=== PATIENT | female | born 1985 | race Two or more races ===

== ENCOUNTER 2017-02-06 12:52 | Emergency (ER) | payer MEDICAID ==
[~2017-02-06] VITALS: Ht 154.9 cm; Wt 62.1 kg
[~2017-02-06 12:52] MED LIST: HYDR500T13; IBUP800T24
[2017-02-06 13:09] VITALS: BP 144/93
== END 2017-02-06 13:51 | disposition home or self-care (01) ==
LOC: ER 12:52
DX: T78.40XA Allergy, unspecified, initial encounter (principal); F17.210 Nicotine dependence, cigarettes, uncomplicated